=== PATIENT | male | born 1970 | race Caucasian/White ===

== ENCOUNTER 2018-04-14 13:43 | Emergency (ER) | payer OTHER ==
[~2018-04-14] VITALS: Ht 185.4 cm; Wt 90.7 kg
[~2018-04-14 13:43] MED LIST: KEFLEX500 MG PO; NOHOMEMEDICATIONS
[2018-04-14 16:49] VITALS: BP 134/82
== END 2018-04-14 16:50 | disposition home or self-care (01) ==
LOC: M.ERS 13:43
DX: S01.01XA Laceration without foreign body of scalp, initial encounter (principal); S50.02XA Contusion of left elbow, initial encounter; W01.0XXA Fall on same level from slipping, tripping and stumbling without subsequent striking against object, initial encounter; Y93.89 Activity, other specified; Y92.89 Other specified places as the place of occurrence of the external cause; Y99.8 Other external cause status

== ENCOUNTER 2018-04-22 16:13 | Emergency (ER) | payer BC ==
[~2018-04-22] VITALS: Ht 188 cm; Wt 90.7 kg
[2018-04-22 16:35] VITALS: BP 142/87
== END 2018-04-22 16:36 | disposition home or self-care (01) ==
LOC: M.ERS 16:13
DX: S01.01XD Laceration without foreign body of scalp, subsequent encounter (principal); W01.0XXD Fall on same level from slipping, tripping and stumbling without subsequent striking against object, subsequent encounter